=== PATIENT | female | born 1930 | race Caucasian/White ===

== ENCOUNTER 2018-02-11 20:31 | Emergency (ER) | payer MEDICARE, OTHER ==
[~2018-02-11] VITALS: Ht 172.7 cm; Wt 74.8 kg
[~2018-02-11 20:31] MED LIST: CLOBETASOL PROP50 M1 TOP; DILANTIN100 MG PO; HYDROCODON-ACE1 EAC7; MECLIZINE HCL12.5 MG PO; MOBIC15 MG; NEURONTIN 300300 M1 PO; PERCOCET 5-3251 EACH PO
[2018-02-11] MEDS ORDERED: MOBIC7.5 MG (20:42)
[2018-02-11 21:01] LABS: ABSOLUTE EOSINOPHILS 0.2 thou/uL (0.0-0.7); ABSOLUTE LYMPHOCYTES 1.9 thou/uL (0.8-5.3); ABSOLUTE MONOCYTES 0.6 thou/uL (0.0-1.2); ABSOLUTE NEUTROPHILS 3.4 thou/uL (1.6-8.1); BASOPHILS 0.6 %; EOSINOPHILS 2.6 %; HEMATOCRIT 39.8 % (37.0-47.0); HEMOGLOBIN 13.4 gm/dL (12.0-15.0); LYMPHOCYTES 30.6 %; MCH 30.3 pg (26.0-34.0); MCHC 33.7 g/dL (28.0-37.0); MCV 89.8 fL (80.0-100.0); MONOCYTES 10.6 %; MPV 6.6 fl. (7.2-11.1); NUCLEATED RBCS 0 /100WBC; PLATELET COUNT* 242 thou/uL (150-400); POLYS 55.6 %; RBC 4.43 mil/uL (4.20-5.00); RDW-CV 13.3 % (10.5-14.5); WBC 6.1 thou/uL (4.0-11.0)
[2018-02-11 21:09] LABS: ANION GAP 8 mmol/L (7-16); BUN 22 mg/dL (7-18); CALCIUM 8.2 mg/dL (8.5-10.1); CHLORIDE 104 mmol/L (98-107); CO2 28 mmol/L (21-32); GLUCOSE 82 mg/dL (70-99); POTASSIUM 3.7 mmol/L (3.5-5.1); SODIUM 140 mmol/L (136-145)
[2018-02-11 21:16] LABS: ALBUMIN 3.7 g/dL (3.4-5.0); ALKALINE PHOSPHATASE 195 U/L (46-116); SGOT 19 U/L (15-37); SGPT 19 U/L (30-65); TOTAL BILIRUBIN 0.3 mg/dL (<0.1-1.0); TOTAL PROTEIN 7.5 g/dL (6.4-8.2); TROPONIN-I LEVEL <0.06 ng/mL (<0.06)
[2018-02-11 21:54] LABS: URINE BILIRUBIN NEGATIVE (Negative); URINE BLOOD NEGATIVE (Negative); URINE CLARITY CLEAR; URINE COLOR YELLOW; URINE GLUCOSE-RANDOM NEGATIVE (Negative); URINE KETONES NEGATIVE (Negative); URINE LEUKOCYTES-REFLEX NEGATIVE (Negative); URINE NITRITE-REFLEX NEGATIVE (Negative); URINE PROTEIN NEGATIVE (Negative); URINE UROBILINOGEN 0.2 E.U./dl (0.2-1.0)
[2018-02-11] MEDS ORDERED: HYDROCODON-ACE1 EAC7 PO (22:25)
[2018-02-11] MEDS ORDERED: TRAMADOL 50 MG50 MG PO (22:25)
[2018-02-11 22:42] VITALS: BP 137/82
--- NOTE | 2018-02-12 11:01 | EKG ---
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 02/12/18 1101 00 00 Martin Huizar MD, [facility] /EPI
== END 2018-02-11 22:44 | disposition home or self-care (01) ==
LOC: M.ERS 20:31
PROVIDERS: Emergency Medicine
DX: S09.8XXA Other specified injuries of head, initial encounter (principal); K21.9 Gastro-esophageal reflux disease without esophagitis; M19.90 Unspecified osteoarthritis, unspecified site; Z87.01 Personal history of pneumonia (recurrent); Z88.0 Allergy status to penicillin; Z87.442 Personal history of urinary calculi; W18.39XA Other fall on same level, initial encounter; Y93.89 Activity, other specified; Y92.89 Other specified places as the place of occurrence of the external cause; Y99.8 Other external cause status

== ENCOUNTER 2019-02-16 13:54 | Emergency (ER) | payer MEDICARE, OTHER ==
[~2019-02-16] VITALS: Ht 172.7 cm; Wt 72.6 kg
[~2019-02-16 13:54] MED LIST changes: +HYDROCODON-ACE1 EAC7 PO; +MOBIC7.5 MG; +TRAMADOL 50 MG50 MG PO
[2019-02-16] MEDS ORDERED: NAPROSYN500 MG PO (14:06)
[2019-02-16] MEDS ORDERED: DILANTIN100 MG PO (14:06)
[2019-02-16 14:30] VITALS: BP 151/80
== END 2019-02-16 14:31 | disposition home or self-care (01) ==
LOC: M.ERS 13:54
DX: R23.2 Flushing (principal); K21.9 Gastro-esophageal reflux disease without esophagitis; M19.90 Unspecified osteoarthritis, unspecified site; Z87.442 Personal history of urinary calculi; Z88.0 Allergy status to penicillin; Z90.49 Acquired absence of other specified parts of digestive tract; Z90.89 Acquired absence of other organs

== ENCOUNTER 2020-09-18 12:12 | Emergency (ER) | payer MEDICARE ==
[~2020-09-18] VITALS: Ht 170.2 cm; Wt 70.3 kg
[~2020-09-18 12:12] MED LIST changes: +NAPROSYN500 MG PO
[2020-09-18] MEDS ORDERED: ASPIRIN EC81 M1 PO (12:24)
[2020-09-18] MEDS ORDERED: DULOXETINE HCL30 MG PO (12:25)
[2020-09-18] MEDS ORDERED: BACLOFEN5 MG PO (12:25)
[2020-09-18] MEDS ORDERED: PLAVIX 75 MG TA75 MG PO (12:25)
[2020-09-18] MEDS ORDERED: LIPITOR40 MG PO (12:25)
[2020-09-18] MEDS ORDERED: PHENYTOIN SODI100 M3 PO (12:26)
[2020-09-18] MEDS ORDERED: VITAMIN D250 MCG PO (12:26)
[2020-09-18] MEDS ORDERED: FUROSEMIDE 20 M20 MG PO (12:26)
[2020-09-18] MEDS ORDERED: TRAMADOL 50 MG50 MG PO (12:27)
[2020-09-18 13:46] LABS: ABSOLUTE EOSINOPHILS 0.3 thou/uL (0.0-0.7); ABSOLUTE MONOCYTES 1.1 thou/uL (0.0-1.2); ABSOLUTE NEUTROPHILS 5.4 thou/uL (1.6-8.1); BASOPHILS 0.5 %; HEMATOCRIT 39.1 % (37.0-47.0); HEMOGLOBIN 12.8 gm/dL (12.0-15.0); LYMPHOCYTES 12.4 %; MCH 28.8 pg (26.0-34.0); MCHC 32.7 g/dL (28.0-37.0); MCV 88.1 fL (80.0-100.0); MONOCYTES 14.3 %; MPV 7.2 fl. (7.2-11.1); NUCLEATED RBCS 0 /100WBC; PLATELET COUNT* 193 thou/uL (150-400); POLYS 68.8 %; RBC 4.44 mil/uL (4.20-5.00); RDW-CV 14.6 % (10.5-14.5); WBC 7.8 thou/uL (4.0-11.0)
[2020-09-18 13:54] LABS: CALCIUM 8.6 mg/dL (8.5-10.1)
[2020-09-18 13:57] LABS: APTT 25.9 Seconds (25.0-31.3); PROTIME 10.2 Seconds (9.20-11.50)
[2020-09-18 13:58] LABS: ALBUMIN 3.6 g/dL (3.4-5.0); TOTAL BILIRUBIN 0.5 mg/dL (<0.1-1.0)
[2020-09-18 14:13] VITALS: BP 100/65
--- NOTE | 2020-09-18 16:35 | EKG ---
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
== END 2020-09-18 14:13 | disposition home or self-care (01) ==
LOC: M.ERS 12:12
PROVIDERS: Family Medicine
DX: S00.93XA Contusion of unspecified part of head, initial encounter (principal); R11.10 Vomiting, unspecified; K21.9 Gastro-esophageal reflux disease without esophagitis; M19.90 Unspecified osteoarthritis, unspecified site; Z87.442 Personal history of urinary calculi; Z98.890 Other specified postprocedural states; Z90.49 Acquired absence of other specified parts of digestive tract; Z86.73 Personal history of transient ischemic attack (TIA), and cerebral infarction without residual deficits; Z79.82 Long term (current) use of aspirin; Z79.899 Other long term (current) drug therapy; Z88.0 Allergy status to penicillin; W19.XXXA Unspecified fall, initial encounter; Y93.89 Activity, other specified; Y92.89 Other specified places as the place of occurrence of the external cause; Y99.8 Other external cause status

== ENCOUNTER 2020-11-22 17:56 | Emergency (ER) | payer MEDICARE, OTHER ==
[~2020-11-22] VITALS: Ht 172.7 cm; Wt 70.3 kg
[~2020-11-22 17:56] MED LIST changes: +ASPIRIN EC81 M1 PO; +BACLOFEN5 MG PO; +DULOXETINE HCL30 MG PO; +FUROSEMIDE 20 M20 MG PO; +LIPITOR40 MG PO; +PHENYTOIN SODI100 M3 PO; +PLAVIX 75 MG TA75 MG PO; +VITAMIN D250 MCG PO
[2020-11-22] MEDS ORDERED: ASPERCREME1 EACH TOP (18:12)
[2020-11-22] MEDS ORDERED: PAIN RELIEF325 MG PO (18:12)
[2020-11-22] MEDS ORDERED: CHILDREN'S ASPI81 MG PO (18:12)
[2020-11-22] MEDS ORDERED: DICLOFENAC SOD100 G1 TOP (18:13)
[2020-11-22] MEDS ORDERED: BACLOFEN5 MG PO (18:13)
[2020-11-22] MEDS ORDERED: LIPITOR40 MG PO (18:13)
[2020-11-22] MEDS ORDERED: PLAVIX 75 MG TA75 MG PO (18:13)
[2020-11-22] MEDS ORDERED: PHENYTOIN SODI100 M3 PO (18:14)
[2020-11-22] MEDS ORDERED: GABAPENTIN 100100 MG (18:14)
[2020-11-22] MEDS ORDERED: DRIZALMA SPRINK30 MG PO (18:14)
[2020-11-22] MEDS ORDERED: VITAMIN D3 (18:16)
[2020-11-22] MEDS ORDERED: FUROSEMIDE 20 M20 MG PO (18:16)
[2020-11-22] MEDS ORDERED: ZOFRAN4 MG PO (18:17)
[2020-11-22] MEDS ORDERED: TIZANIDINE HCL2 M1 PO (18:17)
[2020-11-22] MEDS ORDERED: MOVIPREP POWDE1 EACH PO (18:17)
[2020-11-22] MEDS ORDERED: TRAMADOL 50 MG50 MG PO (18:17)
[2020-11-22 18:42] LABS: ABSOLUTE BASOPHILS 0.1 thou/uL (0.0-0.2); ABSOLUTE MONOCYTES 0.8 thou/uL (0.0-1.2); BASOPHILS 0.7 %; EOSINOPHILS 0.2 %; HEMATOCRIT 40.2 % (37.0-47.0); HEMOGLOBIN 13.5 gm/dL (12.0-15.0); LYMPHOCYTES 7.9 %; MCH 28.9 pg (26.0-34.0); MCHC 33.5 g/dL (28.0-37.0); MCV 86.2 fL (80.0-100.0); MONOCYTES 6.4 %; MPV 7.1 fl. (7.2-11.1); NUCLEATED RBCS 0 /100WBC; PLATELET COUNT* 242 thou/uL (150-400); POLYS 84.8 %; RBC 4.66 mil/uL (4.20-5.00); RDW-CV 14.6 % (10.5-14.5)
[2020-11-22 18:53] LABS: CREATININE 1.1 mg/dL (0.6-1.3)
[2020-11-22 18:58] LABS: TOTAL BILIRUBIN 0.3 mg/dL (<0.1-1.0); TOTAL PROTEIN 7.7 g/dL (6.4-8.2)
[2020-11-22 19:45] LABS: URINE BILIRUBIN NEGATIVE (Negative); URINE BLOOD 3+ (Negative); URINE CLARITY CLEAR; URINE COLOR YELLOW; URINE GLUCOSE-RANDOM NEGATIVE (Negative); URINE KETONES NEGATIVE (Negative); URINE LEUKOCYTES 1+ (Negative); URINE NITRITE NEGATIVE (Negative); URINE PROTEIN NEGATIVE (Negative); URINE UROBILINOGEN 0.2 E.U./dl (0.2-1.0)
[2020-11-22 19:53] LABS: BACTERIA 1-9 Few /HPF (None Seen); CASTS None Seen /LPF (None Seen); CRYSTALS None Seen /LPF (None Seen); SQUAMOUS 0-3 Few /LPF (0-3); URINE RBC >20 Many /HPF (0-2); URINE WBC 0-5 Rare /HPF (0-5)
[2020-11-22] MEDS ORDERED: CEPHALEXIN500 MG PO ×2 (20:37→21:03)
[2020-11-22] MEDS ORDERED: ZOFRAN ODT4 MG PO (20:37)
[2020-11-22 21:12] VITALS: BP 150/70
== END 2020-11-22 21:12 | disposition home or self-care (01) ==
LOC: M.ERS 17:56
PROVIDERS: Physician Assistant
DX: N39.0 Urinary tract infection, site not specified (principal); N13.30 Unspecified hydronephrosis; K21.9 Gastro-esophageal reflux disease without esophagitis; M19.90 Unspecified osteoarthritis, unspecified site; Z87.01 Personal history of pneumonia (recurrent); Z88.0 Allergy status to penicillin; Z87.442 Personal history of urinary calculi; Z90.89 Acquired absence of other organs